=== PATIENT | female | born 1985 | race Caucasian/White ===

== ENCOUNTER 2024-02-04 02:22 | Emergency (ER) | payer BC ==
[2024-02-04] MEDS: Phenazopyridine 95 MG Tab PO STA (02:41)
[2024-02-04 02:48] LABS: APPEARANCE,URINE CLOUDY (CLEAR); PH,URINE 8.5 (5.0-9.0)
[2024-02-04 02:49] LABS: GLUCOSE,URINE 100 mg/dL (NEGATIVE); KETONES,URINE 40 mg/dL (NEGATIVE); PROTEIN,URINE >=300 mg/dL (NEGATIVE)
[2024-02-04 02:50] LABS: BILIRUBIN,URINE SMALL (NEGATIVE); LEUKOCYTE ESTERASE,URINE LARGE (NEGATIVE); NITRITE,URINE POSITIVE (NEGATIVE); OCCULT BLOOD,URINE LARGE (NEGATIVE)
[2024-02-04 02:53] LABS: BACTERIA,URINE FEW /HPF (NONE TO FEW); COLOR,URINE ORANGE (YELLOW); EPITHELIAL CELLS,URINE FEW /LPF; RBC,URINE PACKED /HPF; WBC,URINE >100 /HPF
[2024-02-04 02:57] VITALS: BP 111/71; PULSE 82
[2024-02-04] MEDS: Lidocaine 1% 5 ML VIAL ONE (03:09)
[2024-02-04] MEDS: cefTRIAXone 1 GM Vial IM ONE (03:09)
== END 2024-02-04 03:23 | disposition home or self-care (01) ==
LOC: LL.ED 02:22
DX: N30.01 Acute cystitis with hematuria (principal); Z79.899 Other long term (current) drug therapy
CPT/HCPCS: 81001; 87086; 87088; 87186; 96372; 99283; 99284; A9270-GY; J0696; J3490